=== PATIENT | male | born 1990 | race Caucasian/White ===

== ENCOUNTER → 2017-03-25 | Outpatient (REF) | payer SELFPAY ==
[2017-03-25 11:21] LABS: SPERM ABNORMAL FORMS WBC'S NOTED
[2017-03-25 11:22] LABS: % NORMAL FORMS < 4 % (>=4); IMMOTILITY 75 %; NON PROGRESSIVE MOTILITY (c) 13 %; PROGRESSIVE MOTILITY (a) 12 % (>=32); SPERM# 56.7 M/Ejac (>=39); TOTAL FUNCTIONAL 0.5 M/Ejac.; TOTAL MOTILITY 25 % (>=40); TOTAL PROGRESSIVE SPERM 6.8 M/Ejac.
== END ==
LOC: M LAB REF 11:13
PROVIDERS: ATTEND Nurse Practitioner Women's Health
DX: N46.9 Male infertility, unspecified (principal)